=== PATIENT | male | born 1985 | race Caucasian/White ===

== ENCOUNTER 2023-10-07 11:45 | Day surgery (SDC) | payer BC ==
[~2023-10-07] VITALS: Ht 180.3 cm; Wt 100.1 kg
[2023-10-07] MEDS ORDERED: HYDR-4517 PO (11:56)
[2023-10-07] MEDS: NS 1,000 ML IV ONE (13:00)
[2023-10-07 13:20] LABS: BASO % 0.6 % (0.0-1.0); EOS # 0.3 10^3/uL (0.0-0.5); EOS % 5.5 % (0.0-3.0); HEMATOCRIT 43.3 % (42.0-52.0); HEMOGLOBIN 15.5 g/dl (13.5-17.5); LYMPH % 16.4 % (24.0-44.0); MEAN CORPUSCULAR HEMOGLOBIN 31.6 pg (27.0-33.0); MEAN CORPUSCULAR HGB CONC 35.8 g/dl (32.0-36.5); MEAN CORPUSCULAR VOLUME 88.2 fl (80.0-96.0); MONO # 0.7 10^3/uL (0.0-0.8); MONO % 11.4 % (2.0-8.0); NEUTROPHILS # 4.1 10^3/uL (1.5-8.5); NEUTROPHILS % 65.8 % (36.0-66.0); PLATELET COUNT, AUTOMATED 175 10^3/uL (150-450); RED BLOOD COUNT 4.91 10^6/uL (4.30-6.10); WHITE BLOOD COUNT 6.2 10^3/uL (4.0-10.0)
[2023-10-07 13:54] LABS: ALBUMIN 3.9 G/DL (3.2-5.2); BILIRUBIN,DIRECT 0.2 MG/DL (<0.4); BILIRUBIN,TOTAL 0.8 MG/DL (0.3-1.2); CALCIUM LEVEL 9.1 MG/DL (8.5-10.1); CREATININE FOR GFR 1.86 MG/DL (0.70-1.30); POTASSIUM SERUM 3.9 MMOL/L (3.5-5.1); TOTAL PROTEIN 6.6 G/DL (5.7-8.2)
[2023-10-07] MEDS: KETOROLAC 30 MG/ML 1ML VIAL IV ONE (13:59)
[2023-10-07] MEDS ORDERED: MIDAZOLAM INJ 2MG/2ML VIAL As Ordered ONE (16:12)
[2023-10-07] MEDS ORDERED: propofoL 200 MG/20 ML VIAL As Ordered ONE (16:12)
[2023-10-07] MEDS ORDERED: LIDOCAINE 2% 100MG/5ML SDV (FOR ANES.) As Ordered ONE (16:12)
[2023-10-07] MEDS ORDERED: fentaNYL 100 MCG/2 ML INJECTION As Ordered ONE (16:12)
[2023-10-07] MEDS ORDERED: ceFAZolin SOD 2 GM in IV 1 EA IV ONE (16:40)
[2023-10-07] MEDS: ceFAZolin 2 GM/D5W 50 ML IV BAG As Ordered ONE (16:58)
[2023-10-07] MEDS ORDERED: ONDANSETRON 4MG 2ML VIAL As Ordered ONE (16:59)
[2023-10-07] MEDS: ISOVUE-300 61% 100ML VIAL As Ordered ONE (17:07)
[2023-10-07] MEDS ORDERED: ACETAMINOPHEN 1000MG 100ML IV BAG As Ordered ONE (17:22)
[2023-10-07] MEDS ORDERED: FLOM0.4C39 PO (18:37)
[2023-10-07 19:00] VITALS: BP 121/78; TEMP 98.2; O2SAT 96
== END 2023-10-07 21:03 | disposition home or self-care (01) ==
LOC: M ED 11:45 → M SDC 14:54
PROVIDERS: ATTEND Urology
DX: N13.2 Hydronephrosis with renal and ureteral calculous obstruction (principal)
CPT/HCPCS: 36415; 52356; 74176; 76000; 80048; 80076; 81001; 82365; 83605; 83690; 85025; 87040; 99284; C1769; C1894; C2617; J0131; J0690; J1100; J1885; J2250; J2405; J3010; Q9967